=== PATIENT | female | born 1995 | race Hispanic/Latino ===

== ENCOUNTER → 2019-11-01 | Outpatient (CLI) | payer OTHER ==
--- NOTE | 2019-11-01 13:53 | REP ---
PELVIC ULTRASOUND: Real-time sonographic evaluation of the pelvis performed. Uterus measures 10.2 x 4.7 x 6.9 cm. There is an intrauterine gestational sac which contains a yolk sac and a pole. The crown-rump length is 15 mm corresponding to an estimated gestational age of 7 weeks 6 days. No heart motion is detected consistent with intrauterine demise. The right ovary is not visualized. The left ovary measures 2.8 x 1.2 x 1.8 cm. IMPRESSION: Intrauterine gestation 7 weeks 6 days age demonstrates no heart motion consistent with intrauterine demise. Electronically Signed by Eleuterio Go MD 11/01/2019 03:54 P
== END ==
LOC: M RAD 12:16
PROVIDERS: ATTEND Obstetrics & Gynecology
DX: Z34.80 Encounter for supervision of other normal pregnancy, unspecified trimester (principal); Z3A.00 Weeks of gestation of pregnancy not specified

== ENCOUNTER 2021-04-11 05:04 | Inpatient (IN) | payer OTHER ==
[2021-04-11] VITALS (24 sets, daily range): BP systolic 133–178; BP diastolic 67–102
[~2021-04-11] VITALS: Ht 157.5 cm; Wt 94.4 kg
[~2021-04-11 05:04] MED LIST: FERR325T81 PO; MULTTAB20 PO; UNIS25TA3 PO; VITA500C24 PO
[2021-04-11] MEDS ORDERED: ceFAZolin SOD 2 GM in IV 1 EA IV ONE (05:15)
[2021-04-11] MEDS ORDERED: BICITRA 30ML SOLN UDC PO ONE (05:15)
[2021-04-11] MEDS ORDERED: LR 1,000 ML IV SCH (05:15)
[2021-04-11] MEDS ORDERED: LR 1,000 ML IV ONE (05:15)
[2021-04-11 05:40] LABS: HEMATOCRIT 28.5 % (36.0-47.0); HEMOGLOBIN 8.7 g/dl (12.0-15.5); MEAN CORPUSCULAR HEMOGLOBIN 23.3 pg (27.0-33.0); MEAN CORPUSCULAR HGB CONC 30.5 g/dl (32.0-36.5); MEAN CORPUSCULAR VOLUME 76.2 fl (80.0-96.0); PLATELET COUNT, AUTOMATED 197 10^3/uL (150-450); RED BLOOD COUNT 3.74 10^6/uL (4.00-5.40); WHITE BLOOD COUNT 9.9 10^3/uL (4.0-10.0)
[2021-04-11] MEDS ORDERED: NALBUPHINE HCL 10 MG/ML AMP (J2300) IV PRN ×2 (07:54→09:35)
[2021-04-11] MEDS ORDERED: diphenhydrAMINE 50MG/ML VIAL (J1200) IV PRN (07:54)
[2021-04-11] MEDS ORDERED: ONDANSETRON 4MG/2ML VIAL IV PRN ×2 (07:54→09:35)
[2021-04-11] MEDS ORDERED: NALOXONE INJ 0.4MG/1ML VIAL (J2310 PER 1MG) IV PRN ×2 (07:54)
[2021-04-11] MEDS ORDERED: METOCLOPRAMIDE INJ 10MG/2ML VIAL (J2765 PER 1) IV PRN (07:54)
[2021-04-11] MEDS ORDERED: MORPHINE PRES-FREE INJ 10 MG/10 ML VIAL (J2274) As Ordered ONE (07:58)
[2021-04-11] MEDS ORDERED: ONDANSETRON 4MG/2ML VIAL As Ordered ONE (07:59)
[2021-04-11] MEDS ORDERED: OXYTOCIN 30 UNITS IN 0.9% NaCl 500ML IV BAG (J2590) As Ordered ONE ×2 (07:59→09:21)
[2021-04-11] MEDS ORDERED: ePHEDrine SULFATE 25 MG/5 ML(5MG/ML) SYRINGE As Ordered ONE (08:21)
[2021-04-11] MEDS ORDERED: KETOROLAC 60MG 2ML VIAL As Ordered ONE (08:27)
[2021-04-11] MEDS ORDERED: PERCOCET 5MG/325MG TAB PO PRN (09:20)
[2021-04-11] MEDS ORDERED: MEASLES,MUMPS,RUBELLA VACCINE INJ (MMR-II) (90707) SC SCH (09:20)
[2021-04-11] MEDS ORDERED: DOCUSATE SODIUM 100MG CAPSULE PO PRN (09:20)
[2021-04-11] MEDS ORDERED: PROMETHAZINE 25 MG TAB PO PRN (09:20)
[2021-04-11] MEDS ORDERED: RHOGAM 300 MCG (1500 IU) INJ (J2790) IM SCH (09:20)
[2021-04-11] MEDS ORDERED: SIMETHICONE 80MG CHEW TAB PO PRN (09:20)
[2021-04-11] MEDS ORDERED: OXYTOCIN DRIP 30 UNITS in IV 1 EA IV SCH (09:20)
[2021-04-11] MEDS ORDERED: fentaNYL 100 MCG/2 ML INJECTION (J3010) IV PRN (09:35)
[2021-04-11] MEDS ORDERED: oxyCODONE 5MG TAB PO PRN (09:35)
[2021-04-11] MEDS ORDERED: LR 500 ML IV ONE (11:20)
--- NOTE | 2021-04-11 11:28 | RO ---
OPERATIVE NOTE DATE OF OPERATION: 04/11/2021 PREOPERATIVE DIAGNOSES: 1. Prior x2. 2. No desire for TOLAC. 3. Obesity. POSTOPERATIVE DIAGNOSES: 1. Prior x2. 2. No desire for TOLAC. 3. Obesity. PROCEDURE: Repeat low transverse section. SURGEON: Moses Pagan DO [facility] MANAGER: Esther Falcon CNM, whose assistance with exposure, retraction, and visualization was essential to completion of the case. ANESTHESIA: Spinal. IV FLUIDS: 1300 mL LR. URINE OUTPUT: 25 mL via Marcum catheter. EBL: 500 mL. ANTIBIOTICS: 2 gm Ancef before case start. OPERATIVE FINDINGS: Normal appearing uterus, fallopian tubes and ovaries bilaterally. Viable female found and delivered in cephalic presentation. weight 3500 gm or 7 pounds 11 ounces, Apgars 9 and 9. COMPLICATIONS: None. DESCRIPTION OF PROCEDURE: The risks, benefits, indications, and alternatives of the procedure were reviewed with the patient and informed consent was obtained. The patient was taken to the operating room where spinal anesthesia was obtained and found to be adequate. She was then prepped and draped in the usual sterile fashion in the dorsal supine position with a leftward tilt. A surgical time out was then performed and the patient's identity and planned procedure were verified with the operative team. A pfannenstiel skin incision was then made with a scalpel and carried through to the underlying layer of fascia with Bovie electrocautery. The fascia was incised in the midline and the incision was extended laterally with Vieira scissors. The superior aspect of the fascial incision was grasped with Tom clamps, elevated, and the underlying rectus muscles were dissected off bluntly and with Vieira scissors. Attention was then turned to the inferior aspect of this incision which in similar fashion was grasped, tented up with Tom clamps, and the rectus muscles were dissected off both by blunt dissection and with Vieira scissors. The rectus muscles were then in the midline. The peritoneum was identified, tented up, and entered digitally. The peritoneal incision was then extended horizontally and superiorly with good visualization of the bladder. A Mobius self-retaining retractor was then introduced into the abdomen as means for exposure. The vesicouterine peritoneum was then nicked with the scalpel and the bladder flap was created digitally. Next, the lower uterine segment was incised in a transverse fashion with the scalpel. The amniotic sac was artificially ruptured productive of clear fluid. The uterine incision was then extended manually in a superolateral fashion. The infant was found to be in cephalic presentation. The baby was then delivered atraumatically through the hysterotomy site without difficulty. The cord was doubly clamped and cut. The infant was handed off to the awaiting pediatricians. The placenta was then removed manually with gentle traction on the cord. The uterus was then cleared of all clots and debris. The uterine incision was then repaired with #0 Monocryl suture in a running locked fashion. A second layer of #0 Monocryl was then used to imbricate the hysterotomy in a vertical fashion. Irrigation was then performed. Inspection of the hysterotomy revealed excellent hemostasis. The pericolic gutters were then inspected and cleared of all clot and debris. Final inspection of hysterotomy revealed continued excellent hemostasis. The Mobius self-retaining retractor was then removed from the abdomen. The peritoneum was then closed with 3-0 Vicryl suture in a running fashion. The fascia was closed with #0 Vicryl suture in a running fashion. The subcutaneous fat was closed with 3-0 Vicryl suture in a running fashion. The skin was closed with 4-0 Monocryl suture in a subcuticular fashion. The incision was then dressed with Steri-Strips and an Optifoam dressing was applied. At the completion of the case a bimanual exam was performed which revealed good uterine tone and minimal vaginal bleeding. The patient tolerated the procedure well. Sponge, instrument, and needle counts were correct x3. The patient was taken to the recovery room in stable condition. YAMIL
--- NOTE | 2021-04-11 11:37 | IPNPDOC ---
Progress Note Date of Service: April 11, 2021 Day#: 0 Progress Note SUBJECT: The patient is a 26-year-old 4 now Para 2-0-1-2 status post uncomplicated section delivery at 38-1/7 weeks. She has only had a total of 35 ml of urine output since arriving to the OR. 25 ml of urine while in the OR and 10 ml of urine in the PACU. She has received 2700 ml of IV fluids since arriving to the OR. BP has been stable. She denies headache, chest pain, RUQ pain, and visual changes. OBJECTIVE: VITAL SIGNS: Within normal limits, afebrile, except BP mildly elevated Alert and oriented times three. Breath sounds clear to auscultation. Heart rate: Regular rate and rhythm, no murmurs, rubs or gallops. Abdomen: Fundus firm at U-2. Soft, NTTP. Minimal lochia. Bladder scan: 1 ml ASSESSMENT: The patient is a 26-year-old 4 now Para 2-0-1-2 status post uncomplicated section delivery at 38-1/7 weeks. Discussed with patient that likely fluid is third spacing. Discussed with her that will obtain labs and continue to monitor BP. If BP is elevated in severe range, will start magnesium sulfate IV x24 hours and PO antihypertensives. PLAN: Obtain PIH labs IV fluid bolus of 500 ml LR Continue to monitor BP, if severe range >160 systolic and/or >110 diastolic, will start magnesium sulfate and PO antihypertensives Discussed patient status with Dr. Pagan, who agrees and recommended this plan. VS, I&O, 24H, Fishbone Vital Signs/I&O Vital Signs Date Time Temp Pulse Resp B/P (MAP) Pulse Ox O2 Delivery O2 Flow Rate FiO2 04/11/21 11:15 97.9 82 16 142/86 (104) 98 Room Air Laboratory Data 24H LABS Laboratory Tests 2 04/10/21 22:09: Serology Scanned Report Hepatitis B Testing 04/11/21 05:26: Nucleated Red Blood Cells % (auto) 0.0, Syphilis Serology NONREACTIVE CBC/BMP Laboratory Tests 04/11/21 05:26 BHAVIN REYES CNM April 11, 2021 11:37
[2021-04-11 12:36] LABS: ALT/SGPT 13 U/L (12-78); BILIRUBIN,TOTAL 0.2 MG/DL (0.2-1.0); CREATININE FOR GFR 0.33 MG/DL (0.55-1.30); GLOMERULAR FILTRATION RATE > 60.0 (>60); LDH LACTATE DEHYDROGENASE 195 U/L (84-246); URIC ACID 4.3 MG/DL (2.6-6.0)
[2021-04-11] MEDS: KETOROLAC 30 MG/ML 1ML VIAL IV SCH ×2 (13:38→19:56)
[2021-04-11] MEDS ORDERED: MAGNESIUM *L&D* 4GM/100ML BAG (40MG/ML) IV ONE (18:35)
[2021-04-11] MEDS: MAG Sulf (OBGYN) 20GM/500ML 20,000 MG in IV 1 EA IV SCH (19:13)
[2021-04-11] MEDS: LABETALOL 100MG TAB PO SCH (20:23)
[2021-04-11] MEDS: LR 1,000 ML IV SCH (20:43)
--- NOTE | 2021-04-11 21:50 | IPNPDOC ---
Progress Note Date of Service: April 11, 2021 Progress Note Roxana had severely elevated blood pressures this morning before surgery, and then briefly thereafter. Her blood pressure was then normal to mildly elevated this afternoon. CMP was normal. She was noted to be oliguric all day, including only 25ml of UO intraoperatively. She had vomiting even before surgery started, and then vomited multiple times postoperatively. This evening she again developed persistent severely elevated blood pressures so I started IV magnesium for maternal seizure prophylaxis and she was transferred back to L&D. She rules in for CHTN with superimposed pre eclampsia with severe features. At the bedside this evening Roxana reports feeling well. Her nausea has improved. She denies any headaches, RUQ pain, or visual changes. She denies any pain whatsoever. Vitals - BP normal to mildly elevated, HR 70s-80s, afebrile, 98-99% PO2 on RA General - Sitting up in bed, AAOX3, pleasant and conversant, NAD Abdomen - Soft, nondistended. No tenderness to palpation. - Marucm bag draining clear/yellow urine Extremities - 2+ edema UO - Oliguria, though this appears to be improving. Last hour she put out 30ml and hour before that she put out 75ml. Will maintain mag drip for 24 hours. Will serially check CBC, CMP, and mag lev el. PO labetalol BID ordered for BP control. Clear liquid diet. Continuous SCDs. Encourage IS use. Will continue to monitor UO closely. I suspect 3rd spacing of fluid from her Pre E, worsening anemia s/p surgery (starting H/H ~07/21), and multiple episodes of vomiting with subsequent fluid loss explain her oliguria. I discussed all of this with Roxana and her in detail. All questions answered. Ej VS, I&O, 24H, Rhys Vital Signs/I&O Vital Signs Date Time Temp Pulse Resp B/P (MAP) Pulse Ox O2 Delivery O2 Flow Rate FiO2 04/11/21 20:57 71 16 144/83 (103) 04/11/21 20:27 97.9 04/11/21 18:00 99 04/11/21 12:15 Room Air Laboratory Data 24H LABS Laboratory Tests 2 04/10/21 22:09: Serology Scanned Report Hepatitis B Testing 04/11/21 05:26: Nucleated Red Blood Cells % (auto) 0.0, Syphilis Serology NONREACTIVE 04/11/21 11:53: Glomerular Filtration Rate > 60.0, Uric Acid 4.3, Total Bilirubin 0.2, Aspartate Amino Transf (AST/SGOT) 17, Alanine Aminotransferase (ALT/SGPT) 13, Lactate Dehydrogenase 195 CBC/BMP Laboratory Tests 04/11/21 05:26 04/11/21 11:53 KENNEDY HENRIQUEZ DO April 11, 2021 21:50
[2021-04-12] VITALS (23 sets, daily range): BP systolic 118–179; BP diastolic 56–107
[2021-04-12 01:08] LABS: HEMATOCRIT 23.3 % (36.0-47.0); MEAN CORPUSCULAR VOLUME 76.6 fl (80.0-96.0); PLATELET COUNT, AUTOMATED 157 10^3/uL (150-450); RED BLOOD COUNT 3.04 10^6/uL (4.00-5.40); WHITE BLOOD COUNT 7.9 10^3/uL (4.0-10.0)
[2021-04-12 01:36] LABS: ALBUMIN 2.1 GM/DL (3.2-5.2); ALT/SGPT 13 U/L (12-78); BILIRUBIN,TOTAL 0.3 MG/DL (0.2-1.0); BLOOD UREA NITROGEN 5 MG/DL (7-18); CALCIUM LEVEL 7.7 MG/DL (8.5-10.1); CARBON DIOXIDE LEVEL 27 MEQ/L (21-32); CHLORIDE LEVEL 105 MEQ/L (98-107); CREATININE FOR GFR 0.34 MG/DL (0.55-1.30); GLOMERULAR FILTRATION RATE > 60.0 (>60); GLUCOSE, FASTING 121 MG/DL (70-100); MAGNESIUM LEVEL 2.9 MG/DL (1.8-2.4); POTASSIUM SERUM 3.5 MEQ/L (3.5-5.1); SODIUM LEVEL 135 MEQ/L (136-145); TOTAL PROTEIN 5.2 GM/DL (6.4-8.2)
[2021-04-12] MEDS: KETOROLAC 30 MG/ML 1ML VIAL IV SCH (02:23)
[2021-04-12 06:53] LABS: HEMATOCRIT 23.3 % (36.0-47.0); MEAN CORPUSCULAR HEMOGLOBIN 23.3 pg (27.0-33.0); MEAN CORPUSCULAR VOLUME 77.7 fl (80.0-96.0); PLATELET COUNT, AUTOMATED 165 10^3/uL (150-450); WHITE BLOOD COUNT 6.5 10^3/uL (4.0-10.0)
--- NOTE | 2021-04-12 07:10 | IPNPDOC ---
Progress Note Date of Service: April 12, 2021 Progress Note Urine output has increased significantly, >200ml/hr. BP remains normal to mildly elevated. H/H is stable. Plan to continue magnesium drip for 24 hours (~1900 today). Will then remove gusman catheter, ambulate, and monitor for symptoms of anemia, and transfuse if indicated. Ej VS, I&O, 24H, Michelbonbetty Vital Signs/I&O Vital Signs Date Time Temp Pulse Resp B/P (MAP) Pulse Ox O2 Delivery O2 Flow Rate FiO2 04/12/21 06:33 81 16 141/71 (94) 04/12/21 02:27 97.8 04/11/21 18:00 99 04/11/21 12:15 Room Air I&O- Last 24 Hours up to 6 AM 04/12/21 06:00 Intake Total 5767.8 ml Output Total 4565 ml Balance 1202.8 ml Laboratory Data 24H LABS Laboratory Tests 2 04/11/21 11:53: Glomerular Filtration Rate > 60.0, Uric Acid 4.3, Total Bilirubin 0.2, Aspartate Amino Transf (AST/SGOT) 17, Alanine Aminotransferase (ALT/SGPT) 13, Lactate Dehydrogenase 195 04/12/21 01:01: Glomerular Filtration Rate > 60.0, Total Bilirubin 0.3, Aspartate Amino Transf (AST/SGOT) 29, Alanine Aminotransferase (ALT/SGPT) 13, Nucleated Red Blood Cells % (auto) 0.0, Anion Gap 3L, Calcium Level 7.7L, Magnesium Level 2.9H, Alkaline Phosphatase 123H, Total Protein 5.2L, Albumin 2.1L, Albumin/Globulin Ratio 0.7L 04/12/21 06:44: Nucleated Red Blood Cells % (auto) 0.0 CBC/BMP Laboratory Tests 04/11/21 11:53 04/12/21 01:01 04/12/21 06:44 KENNEDY HENRIQUEZ DO April 12, 2021 07:10
[2021-04-12 07:21] LABS: ALBUMIN 1.9 GM/DL (3.2-5.2); ALT/SGPT 13 U/L (12-78); BILIRUBIN,TOTAL 0.2 MG/DL (0.2-1.0); BLOOD UREA NITROGEN 4 MG/DL (7-18); CALCIUM LEVEL 7.9 MG/DL (8.5-10.1); CARBON DIOXIDE LEVEL 28 MEQ/L (21-32); CHLORIDE LEVEL 106 MEQ/L (98-107); CREATININE FOR GFR 0.34 MG/DL (0.55-1.30); GLOMERULAR FILTRATION RATE > 60.0 (>60); GLUCOSE, FASTING 89 MG/DL (70-100); MAGNESIUM LEVEL 3.2 MG/DL (1.8-2.4); SODIUM LEVEL 140 MEQ/L (136-145); TOTAL PROTEIN 4.9 GM/DL (6.4-8.2)
[2021-04-12] MEDS: LABETALOL 100MG TAB PO SCH ×2 (09:18→20:52)
[2021-04-12] MEDS: IBUPROFEN 800 MG TAB PO SCH ×2 (09:18→17:41)
[2021-04-12] MEDS: PRENATAL VITAMINS CHEWABLE TABLET PO SCH (09:18)
[2021-04-12] MEDS: PERCOCET 5MG/325MG TAB PO PRN ×2 (13:05→17:43)
[2021-04-12] MEDS: MAG Sulf (OBGYN) 20GM/500ML 20,000 MG in IV 1 EA IV SCH (15:08)
--- NOTE | 2021-04-12 18:17 | IPNPDOC ---
Text Note Date of Service The patient was seen on 04/12/21. NOTE 04/12/2021 1800 hours review progress to date. . 26 yo AT 38.1 WEEKS HAD REPEAT CS AND POST C/S HAD SEVERE RANGE BLOOD PRESSURE STARTED ON LABETALOL AND MGSO4 . NOW DIURESIS AND STABLE BP ON MGSO4 X 24 HOURS. Plan is to d/c mgso4, continue labetalol and d/c Marcum and send to floor , SAFE TO PROCEED VS,Rhys, I+O VS, Rhys, I+O Laboratory Tests 04/12/21 01:01 04/12/21 06:44 Vital Signs Date Time Temp Pulse Resp B/P (MAP) Pulse Ox O2 Delivery O2 Flow Rate FiO2 04/12/21 17:43 18 04/12/21 06:33 81 141/71 (94) 04/12/21 02:27 97.8 04/11/21 18:00 99 04/11/21 12:15 Room Air I&O- Last 24 Hours up to 6 AM 04/12/21 06:00 Intake Total 5767.8 ml Output Total 4565 ml Balance 1202.8 ml Toi Singh MD April 12, 2021 18:12
[2021-04-12] MEDS: LR 1,000 ML IV SCH (20:05)
[2021-04-12 20:06] LABS: HEMATOCRIT 25.8 % (36.0-47.0); HEMOGLOBIN 7.8 g/dl (12.0-15.5); MEAN CORPUSCULAR HEMOGLOBIN 23.4 pg (27.0-33.0); MEAN CORPUSCULAR HGB CONC 30.2 g/dl (32.0-36.5); MEAN CORPUSCULAR VOLUME 77.2 fl (80.0-96.0); PLATELET COUNT, AUTOMATED 222 10^3/uL (150-450); RED BLOOD COUNT 3.34 10^6/uL (4.00-5.40); WHITE BLOOD COUNT 8.4 10^3/uL (4.0-10.0)
[2021-04-13] VITALS (7 sets, daily range): BP systolic 131–160; BP diastolic 76–92
[2021-04-13] MEDS: IBUPROFEN 800 MG TAB PO SCH ×3 (01:54→17:48)
[2021-04-13] MEDS: PERCOCET 5MG/325MG TAB PO PRN ×3 (01:57→21:28)
[2021-04-13] MEDS: LR 1,000 ML IV SCH ×3 (02:35→22:35)
[2021-04-13] MEDS: LABETALOL 100MG TAB PO SCH ×2 (09:08→21:18)
[2021-04-13] MEDS: PRENATAL VITAMINS CHEWABLE TABLET PO SCH (09:09)
[2021-04-13] MEDS: MAG Sulf (OBGYN) 20GM/500ML 20,000 MG in IV 1 EA IV SCH (10:35)
--- NOTE | 2021-04-13 10:51 | IPNPDOC ---
Progress Note Date of Service: April 13, 2021 Day#: 2 Progress Note SUBJECT: Roxana is a 26-year-old post RLTCS with superimposed PRE E doing well day # 2. She has been ambulating, voiding spontaneously without issue and tolerating regular diet. Breast feeding without issue. Reports lochia is normal. Patient is ambulating well. Reports some tenderness at incision site feels better with abdominal wrap. OBJECTIVE: VITAL SIGNS: mild rang BP, afebrile. Alert and oriented times three. Denies headaches or vision changes. Breath sounds clear to auscultation. Heart rate: Regular rate and rhythm, no murmurs, rubs or gallops. Abdomen: Fundus firm at U-2. Soft, NTTP. Small lochia. ASSESSMENT: Stable day 2 post . B/P normal- mild range, afebrile. PLAN: 1. continue to monitor B/P on labetalol 2. provide routine care 3. anticipate discharge on 14Apr2021 VS, I&O, 24H, Fishbone Vital Signs/I&O Vital Signs Date Time Temp Pulse Resp B/P (MAP) Pulse Ox O2 Delivery O2 Flow Rate FiO2 04/13/21 10:00 98.9 93 15 131/77 (95) 97 Room Air I&O- Last 24 Hours up to 6 AM 04/13/21 06:00 Intake Total 1532.5 ml Output Total 4500 ml Balance -2967.5 ml Laboratory Data 24H LABS Laboratory Tests 2 04/12/21 19:51: Nucleated Red Blood Cells % (auto) 0.2H CBC/BMP Laboratory Tests 04/12/21 19:51 CHARLES GUZMAN CNM April 13, 2021 10:51
[2021-04-14 02:00] VITALS: BP 130/80
[2021-04-14] MEDS: IBUPROFEN 800 MG TAB PO SCH (02:11)
[2021-04-14] MEDS: PERCOCET 5MG/325MG TAB PO PRN ×2 (05:25→09:04)
[2021-04-14] MEDS ORDERED: IBUP80TA PO (08:53)
[2021-04-14] MEDS ORDERED: PERCOCET PO ×2 (08:53)
--- NOTE | 2021-04-14 09:00 | DS.PDOC ---
Discharge Summary General Date of Admission April 11, 2021 at 05:04 Date of Discharge April 14, 2021 Discharge Summary HOSPITAL COURSE: Ms. Yoder is a 26 yo G5 now P3 who underwent an uncomplicated, scheduled RLTCS on 11Apr2021 for CHTN and history of section X2. She developed superimposed pre eclampsia with severe features and received 24 hours of IV magnesium. She was also star araceli on PO labetalol for BP control. Her BP ultimately stabilized. She had pre existing anemia as well as anemia . Her H/H remained stable and she had no symptoms of anemia with ambulation. On her day of discharge she met all appropriate discharge criteria. She was ambulating with dizziness, SOB, or fatigue, voiding on her own, tolerating a regular diet, passing gas, and had minimal lochia. She also denied any headaches, RUQ pain, or visual changes. DISCHARGE MEDICATIONS: Please see below. ALLERGIES: Please see below. PHYSICAL EXAMINATION ON DISCHARGE: VITAL SIGNS: Please see below. GENERAL: AAOX3, NAD ABDOMINAL EXAMINATION: Fundus firm at U-2. No fundal tenderness. Optifoam dressing in place over incision. Well appearing. No tenderness to palpation at incision. EXTREMITIES: Mild edema, much improved. PSYCHIATRIC EXAMINATION: Affect appropriate LABORATORY DATA: Please see below. ACTIVITY: Pelvic rest for 6 weeks. No heavy lifting for 6 weeks DIET: Regular DISCHARGE PLAN: Discharge home DISPOSITION: Discharge home on 14Apr2021 DISCHARGE INSTRUCTIONS: 1. Nothing in the vagina for 6 weeks 2. No heavy lifting for 6 weeks ITEMS TO FOLLOWUP ON ON OUTPATIENT: 1. Walk in BP check on Friday at the [place] 2. supply and distribution manager medications at [facility] and at [facility] 3. Call to schedule a visit for 6 weeks post delivery DISCHARGE CONDITION: Stable. TIME SPENT ON DISCHARGE: Greater than 20 minutes. Kennedy Pagan DO Vital Signs/I&Os Vital Signs Date Time Temp Pulse Resp B/P (MAP) Pulse Ox O2 Delivery O2 Flow Rate FiO2 04/14/21 06:18 16 Room Air 04/14/21 02:00 97.8 96 130/80 (97) 96 Discharge Medications Scheduled Ascorbic Acid (Vitamin C) 500 Mg Capsule, 500 MG PO DAILY, (Reported) Doxylamine Succinate (Unisom Sleep Aid) 25 Mg Tablet, 25 MG PO QPM, (Reported) Ferrous Sulfate (Iron) 325 Mg Tablet, 65 MG PO DAILY, (Reported) Ibuprofen (Ibuprofen) 800 Mg Tablet, 800 MG PO Q8H No122/Iron/Folic Acid ( Multi Tablet) 1 Each Tablet, 1 TAB PO DAILY, (Reported) Scheduled PRN Oxycodone/Acetaminophen (Oxycodone-Acetaminophen 5-325) 1 Each Tablet, 1 TAB PO Q4H PRN for MILD/MODERATE PAIN (PS 1-7) Oxycodone/Acetaminophen (Oxycodone-Acetaminophen 5-325) 1 Each Tablet, 2 TAB PO Q6H PRN for SEVERE PAIN (PS 8-10) Allergies Coded Allergies: No Known Allergies (Unverified , 03/27/21) KENNEDY PAGAN DO April 14, 2021 09:00
[2021-04-14] MEDS: PRENATAL VITAMINS CHEWABLE TABLET PO SCH (09:05)
[2021-04-14 09:09] VITALS: BP 158/88
[2021-04-14] MEDS: LABETALOL 100MG TAB PO SCH (09:09)
[2021-04-14 10:36] VITALS: BP 162/86
== END 2021-04-14 11:00 | disposition home or self-care (01) | DRG 772 ==
LOC: M LDI 05:04 → EDSTATUS 07:30 → M OBS 10:35 → M LDI 18:52 → M OBS 04-12 18:45
PROVIDERS: ADMIT Obstetrics & Gynecology; ATTEND Obstetrics & Gynecology
PROC: 10D00Z1 Extraction of Products of Conception, Low, Open Approach (ICD-10-PCS; principal; 2021-04-11 07:30)
DX: O34.211 Maternal care for low transverse scar from previous cesarean delivery (principal); O10.92 Unspecified pre-existing hypertension complicating childbirth; Z37.0 Single live birth; Z3A.39 39 weeks gestation of pregnancy; E66.9 Obesity, unspecified; O99.214 Obesity complicating childbirth; O14.15 Severe pre-eclampsia, complicating the puerperium

== ENCOUNTER 2021-04-16 13:07 | Inpatient (IN) | payer OTHER ==
[2021-04-16] VITALS (22 sets, daily range): BP systolic 139–186; BP diastolic 84–116
[~2021-04-16] VITALS: Ht 157.5 cm; Wt 85.0 kg
[~2021-04-16 13:07] MED LIST changes: +IBUP80TA PO; +PERCOCET PO
[2021-04-16] MEDS ORDERED: LABETALOL 100MG/20ML VIAL IV STA ×3 (13:27→15:07)
[2021-04-16] MEDS ORDERED: LABE100T5 PO (13:30)
--- NOTE | 2021-04-16 13:44 | IPNPDOC ---
Obstetrical Progress Note Date of Service April 16, 2021 Subjective 26 yo s/p RLTCS on 11 APR 2021 presents for elevated BP . During her admission for her section, she was diagnosed with chronic HTN with superimposed pre-eclampsia and started on labetalol 100 mg BID and was given magnesium sulfate IV x24 hours. She presents from the clinic today with severe range BP in the clinic during her BP check. She denies headache, chest pain, RUQ pain, and visual changes. She last took her labetalol this morning at 0900. Objective BP: 178/107 BP 185/116 Assessment and Plan Age: 26 : 4 Term: 2 Pre-term: 0 Abortions: 1 Livin Additional Comments Will continue to monitor BP and administer IV labetalol Discussed with her increasing her oral labetalol to 200 mg BID starting tonight Will await PIH labs Consider for outpatient BP check tomorrow in the clinic Discussed plan and patient status with Dr. Alonzo, who agrees with the plan Spent 20 minutes of face to face time with the patient for assessment and to discuss plan of care BHAVIN REYES CNM April 16, 2021 13:28
[2021-04-16 13:46] LABS: HEMATOCRIT 27.5 % (36.0-47.0); HEMOGLOBIN 8.1 g/dl (12.0-15.5); MEAN CORPUSCULAR HEMOGLOBIN 23.1 pg (27.0-33.0); MEAN CORPUSCULAR HGB CONC 29.5 g/dl (32.0-36.5); MEAN CORPUSCULAR VOLUME 78.6 fl (80.0-96.0); PLATELET COUNT, AUTOMATED 260 10^3/uL (150-450); WHITE BLOOD COUNT 6.4 10^3/uL (4.0-10.0)
[2021-04-16 14:11] LABS: TOTAL PROTEIN,RANDOM URINE 35.1 MG/DL (0.0-12.0)
[2021-04-16] MEDS ORDERED: hydrALAZINE 20MG/ML 1ML VIAL (J0360 PER 20MG) IV STA (14:12)
[2021-04-16 14:13] LABS: ALT/SGPT 29 U/L (12-78); BILIRUBIN,TOTAL 0.4 MG/DL (0.2-1.0); CREATININE FOR GFR 0.47 MG/DL (0.55-1.30); GLOMERULAR FILTRATION RATE > 60.0 (>60); LDH LACTATE DEHYDROGENASE 266 U/L (84-246); URIC ACID 5.2 MG/DL (2.6-6.0)
[2021-04-16] MEDS ORDERED: hydrALAZINE 20MG/ML 1ML VIAL (J0360 PER 20MG) As Ordered ONE (14:15)
[2021-04-16] MEDS ORDERED: CALCIUM GLUCONATE 1,000 MG in D5W MINI-BAG PLUS 100 ML IV PRN (15:50)
[2021-04-16] MEDS ORDERED: PERCOCET 5MG/325MG TAB PO PRN (15:50)
[2021-04-16] MEDS ORDERED: MAG Sulf (L&D) 4 GM/100 ML 4 GM in IV 1 EA IV ONE (15:50)
[2021-04-16] MEDS: LR 1,000 ML IV SCH (16:36)
--- NOTE | 2021-04-16 16:43 | HPEPDOC ---
General Date of Admission Date of Service: April 16, 2021 Chief Complaint The patient is a 26-year-old female admitted with a reason for visit of 5 Pp Elevated Bp. History of Present Illness 26 yo s/p RLTCS on 11 APR 2021 presents for elevated BP found in routine BP check in clinic. During her admission for her section, she was diagnosed with chronic HTN with superimposed pre-eclampsia with severe features and started on labetalol 100 mg BID and was given magnesium sulfate IV x24 hours . She denies headache, chest pain, RUQ pain, and visual changes. She last took her labetalol this morning at 0900. She denied n/v/d, cp, sob, ritter, visual changes, RUQ pain, f/c, heavy vb, dc, urinary sx. Home Medications Scheduled Ibuprofen (Ibuprofen) 800 Mg Tablet, 800 MG PO Q8H Labetalol HCl (Labetalol HCl) 100 Mg Tablet, 100 MG PO BID, (Reported) Allergies Coded Allergies: No Known Allergies (Unverified , 03/27/21) Past Medical History Medical History PROBLEMS LIST - CHTN on meds, labetlol 100mg BID on admission - superimposed pre-eclampsia with SF s/p 24h Mg in the immediate period - post-operative patient, s/p RCD on - anemia of HISTORY MHX: CHTN on meds SHX: CDx3 OBHX: CD x3, SAB x1 medical management, hx PPH and ITP, CHTN on meds GYNHX: denied sti, hsv, hpv ALL: denied MEDS: labetlol 100mg BID, ibuprofen, percocet, colace, Fe, doubidicane, lanolin SOC: denied a/t/d FHX: non-contributory Social History Recent Travel/Sick Contacts: Denies: Recent travel, Recent sick contacts A-FIB/CHADSVASC A-FIB History Current/History of A-Fib/PAF?: No Physical Examination General Exam: Positive: Alert, No Acute Distress Eye Exam: Positive: Conjunctiva & lids normal ENT Exam: Positive: Atraumatic, Mucous membr. moist/pink Neck Exam: Positive: Supple Chest Exam: Positive: Clear to auscultation Heart Exam: Positive: Rate Normal, Normal S1, Normal S2 Abdomen Exam: Positive: Normal bowel sounds, Soft Extremity Exam: Positive: Edema, Normal pulses, Swelling (+2 BL pedal edema), Other (2/4 BL DTRs no clonus) Skin Exam: Positive: Nl turgor and temperature Neuro Exam: Positive: Normal Gait, Reflexes 2+ Psych Exam: Positive: Mental status NL Vital Signs Vital Signs Date Time Temp Pulse Resp B/P (MAP) Pulse Ox O2 Delivery O2 Flow Rate FiO2 04/16/21 15:13 89 160/99 04/16/21 15:02 18 04/16/21 13:24 99.3 Laboratory Data Labs 24H Laboratory Tests 2 04/16/21 13:30: Nucleated Red Blood Cells % (auto) 0.0, Glomerular Filtration Rate > 60.0, Uric Acid 5.2, Total Bilirubin 0.4, Aspartate Amino Transf (AST/SGOT) 30, Alanine Aminotransferase (ALT/SGPT) 29, Lactate Dehydrogenase 266H 04/16/21 13:36: Urine Random Creatinine 200.0, Urine Random Total Protein 35.1H CBC/BMP Laboratory Tests 04/16/21 13:30 Assessment/Plan ASSESSMENT 26 yo s/p RLTCS on 11 APR 2021 presents for elevated BP found in routine BP check in clinic in the setting of recent diagnosis of superimposed pre-eclampsia with severe features on CHTN diagnosed in the immediate period, receiving 24h Mg at that time, on labetalol 100mg BID on admission. On arrival she had persistent severe range BPs requring 20mg labetalol IV -> 10mg hydralazine IV -> 40mg labetalol IV -> 80mg labetalol IV. Magnesium sulfate was started. She has no symptoms of pre-eclampsia. She now has mild range BPs and otherwise normal VS. Her physical exam is normal with exception of +2 pedal edema. She has anemia H/H 8.1/27.5 but this is stable from pre-op as she had anemia during . She denied symptoms of anemia. Her platelets and creatinine are normal. Her LFTs have trended upward since delivery, but remain within normal range. PLAN - admit to L+D for BP control - IV antihypertensives as indicated for severe BPs, increasing labetlol to 200mg BID - magnesium for seizure prevention for 24h and seizure precautions - gusman catheter placed to monitor urine output - VS/I/O/Mg checks per Mg protocol - clear liquid diet - SCDs for DVT prophylaxis - repeat tox labs in the AM to trend, will DC trend if normal [place] Plan / VTE VTE Prophylaxis Ordered?: Yes (SCDs) SHAYY TORRES DO April 16, 2021 16:43
[2021-04-16] MEDS: MAG Sulf (OBGYN) 20GM/500ML 20,000 MG in IV 1 EA IV SCH (17:11)
[2021-04-16] MEDS ORDERED: LIDOCAINE 2% 5ML JELLY UROJET TOP ONE (17:30)
[2021-04-16] MEDS: DOCUSATE SODIUM 100MG CAPSULE PO SCH (21:00)
[2021-04-16] MEDS: IBUPROFEN 800 MG TAB PO PRN (21:03)
[2021-04-16] MEDS: LABETALOL 200 MG TAB PO SCH (21:04)
[2021-04-16] MEDS: FERROUS SULFATE 325MG TAB PO SCH (21:24)
[2021-04-17] VITALS (31 sets, daily range): BP systolic 119–162; BP diastolic 65–97
[2021-04-17] MEDS: LR 1,000 ML IV SCH (02:10)
[2021-04-17] MEDS: MAG Sulf (OBGYN) 20GM/500ML 20,000 MG in IV 1 EA IV SCH (02:10)
[2021-04-17 07:10] LABS: HEMATOCRIT 26.6 % (36.0-47.0); MEAN CORPUSCULAR HEMOGLOBIN 23.5 pg (27.0-33.0); MEAN CORPUSCULAR HGB CONC 30.1 g/dl (32.0-36.5); MEAN CORPUSCULAR VOLUME 78.2 fl (80.0-96.0); PLATELET COUNT, AUTOMATED 260 10^3/uL (150-450); WHITE BLOOD COUNT 5.4 10^3/uL (4.0-10.0)
--- NOTE | 2021-04-17 07:12 | IPNPDOC ---
Text Note Date of Service The patient was seen on 04/17/21. NOTE History of Present Illness This morning Ms. Yoder has no complaints. She continues to denied n/v/d, cp, sob, ritter, visual changes, abd pain, f/c, heavy vb, vaginal dc, urinary sx. She is tolerating her clear liquid diet, she is on bedrest/seizure precautions, she has a gusman in place. She is having bowel movements without issues. PROBLEMS LIST - CHTN on meds, labetlol 100mg BID on admission - superimposed pre-eclampsia with SF s/p 24h Mg in the immediate period - post-operative patient, s/p RCD on - anemia of HISTORY MHX: CHTN on meds SHX: CDx3 OBHX: CD x3, SAB x1 medical management, hx PPH and ITP, CHTN on meds GYNHX: denied sti, hsv, hpv ALL: denied MEDS: labetlol 100mg BID, ibuprofen, percocet, colace, Fe, doubidicane, lanolin SOC: denied a/t/d FHX: non-contributory Recent Travel/Sick Contacts: Denies EXAM General Exam: Positive: Alert, No Acute Distress Eye Exam: Positive: Conjunctiva & lids normal ENT Exam: Positive: Atraumatic, Mucous membr. moist/pink Neck Exam: Positive: Supple Chest Exam: Positive: Clear to auscultation Heart Exam: Positive: Rate Normal, Normal S1, Normal S2 Abdomen Exam: Positive: Normal bowel sounds, Soft Extremity Exam: Positive: Edema, Normal pulses, Swelling (+2 BL pedal edema), Other (2/4 BL DTRs no clonus) Skin Exam: Positive: Nl turgor and temperature Neuro Exam: Positive: Normal Gait, Reflexes 2+ Psych Exam: Positive: Mental status NL ASSESSMENT Ms. Yoder is a 26 yo s/p RLTCS on 11 APR 2021 presents for elevated BP found in routine BP check in clinic in the setting of recent diagnosis of superimposed pre-eclampsia with severe features on CHTN diagnosed in the immediate period, receiving 24h Mg at that time, on labetalol 100mg BID on admission. On arrival she had persistent severe range BPs requiring 20mg labetalol IV -> 10mg hydralazine IV -> 40mg labetalol IV -> 80mg labetalol IV. Magnesium sulfate was started yesterday at 1600 and her labetalol was increased to 200mg BID. She continues to have no symptoms of pre-eclampsia. She now has mild range BPs and otherwise normal VS. Excellent UOP. Her physical exam is normal with exception of +2 pedal edema. She has anemia H/H 8.1/27.5 but this is stable from pre-op as she had anemia during . She denied symptoms of anemia. Her platelets and creatinine are normal. Her LFTs have trended upward since delivery, but remain within normal range. Her pre-elcampsia labs from this morning have not yet returned. PLAN - IV antihypertensives as indicated for severe BPs, continue labetlol to 200mg BID - magnesium for seizure prevention for 24h and seizure precautions, to be discontinued at 1500 today - gusman catheter placed to monitor urine output - VS/I/O/Mg checks per Mg protocol - will progress to regular diet given improved BP control - SCDs for DVT prophylaxis - follow up on AM labs Rhys Hernandes, I+O VS, Rhys, I+O Laboratory Tests 04/16/21 13:30 Vital Signs Date Time Temp Pulse Resp B/P (MAP) Pulse Ox O2 Delivery O2 Flow Rate FiO2 04/17/21 06:01 78 16 125/78 (94) 04/17/21 03:01 97.5 I&O- Last 24 Hours up to 6 AM 04/17/21 06:00 Intake Total 4415.5 ml Output Total 3675 ml Balance 740.5 ml SHAYY TORRES DO April 17, 2021 07:11
[2021-04-17 07:38] LABS: ALT/SGPT 25 U/L (12-78); BILIRUBIN,TOTAL 0.2 MG/DL (0.2-1.0); CREATININE FOR GFR 0.38 MG/DL (0.55-1.30); GLOMERULAR FILTRATION RATE > 60.0 (>60); LDH LACTATE DEHYDROGENASE 259 U/L (84-246); URIC ACID 5.4 MG/DL (2.6-6.0)
[2021-04-17] MEDS: LABETALOL 200 MG TAB PO SCH ×2 (08:41→21:14)
[2021-04-17] MEDS: FERROUS SULFATE 325MG TAB PO SCH ×2 (08:41→21:12)
[2021-04-17] MEDS: DOCUSATE SODIUM 100MG CAPSULE PO SCH ×2 (08:41→21:00)
[2021-04-17] MEDS: NIFEdipine 30 MG XL TAB PO SCH (13:29)
[2021-04-17] MEDS ORDERED: LABETALOL 100MG/20ML VIAL IV STA (16:26)
[2021-04-17] MEDS: IBUPROFEN 800 MG TAB PO PRN (18:08)
[2021-04-17] MEDS ORDERED: LABETALOL 100MG TAB PO SCH (21:00)
[2021-04-18] VITALS (9 sets, daily range): BP systolic 117–160; BP diastolic 63–84
--- NOTE | 2021-04-18 04:35 | IPNPDOC ---
Text Note Date of Service Item Value Date Time Creatinine 0.38 MG/DL L 04/17/21 0651 Glomerular Filtration Rate > 60.0 04/17/2151 Uric Acid 5.4 MG/DL 04/17/2151 Total Bilirubin 0.2 MG/DL 04/17/21 0651 Aspartate Amino Transf (AST/SGOT) 25 U/L 04/17/21 0651 Alanine Aminotransferase (ALT/SGPT) 25 U/L 04/17/21 0651 Lactate Dehydrogenase 259 U/L H 04/17/21 0651 Vital Signs Label Value Date Time Respiratory Rate 18 bpm 04/12/21 1743 Patient Temperature 98.2 degrees F 04/12/21 1733 Temperature Source Temporal 04/12/21 1733 Pulse 100 04/12/21 1633 Blood Pressure Assessment 148/85 (106) 04/12/21 1633 Source Automatic Cuff (NIBP) Blood Pressure Assessment 137/76 (96) 04/12/21 1733 Source Automatic Cuff (NIBP) Pulse 93 04/12/21 1733 Pulse 95 04/12/21 1453 Blood Pressure Assessment 142/90 (107) 04/12/21 1453 Source Automatic Cuff (NIBP) Respiratory Rate 18 bpm 04/12/21 1340 Pulse 91 04/12/21 1333 Blood Pressure Assessment 136/73 (94) 04/12/21 1333 Source Automatic Cuff (NIBP) Item Value Date Time White Blood Count 5.4 10^3/uL 04/17/21 0651 Red Blood Count 3.40 10^6/uL L 04/17/21 0651 Hemoglobin 8.0 g/dl L 04/17/21 0651 Hematocrit 26.6 % L 04/17/21 0651 Mean Corpuscular Volume 78.2 fl L 04/17/2151 Mean Corpuscular Hemoglobin 23.5 pg L 04/17/2151 Mean Corpuscular Hemoglobin Concent 30.1 g/dl L 04/17/21 0651 Red Cell Distribution Width 17.8 % H 04/17/21 0651 Platelet Count 260 10^3/uL 04/17/21 0651 Nucleated Red Blood Cells % (auto) 0.4 % H 04/17/21 0651 The patient was seen on 04/18/21. NOTE Item Value Date Time Urine Random Creatinine 200.0 MG/DL 04/16/21 1336 Urine Random Total Protein 35.1 MG/DL H 04/16/21 1336 0400 HOURS . REVIEW PLAN OF CARE 26 YO A1 HAD REPEAT CS WITH DIAGNOSIS OF PP PRE E WITH INITIAL HISTORY CHTN, SEEN IN CLINIC HAD SEVERE RANGE BLOOD PRESSURE ADMITTED FOR PRE -E PP . HAD BEEN GIVEN ALL BP MEDS IN PROTOCOL. NOW ON 100 MG LABETALOL TID , AND NIFEDIPINE 30 MG OD . STABLE BLOOD PRESSURE DIURESING REFLEXES NORMAL . NO SYMPTOMS OF PRE E . PLAN IS TRANSFER TO WITH ONGOING ORDERS . VS,Fishbone, I+O VS, Fishbone, I+O Laboratory Tests 04/17/21 06:51 Vital Signs Date Time Temp Pulse Resp B/P (MAP) Pulse Ox O2 Delivery O2 Flow Rate FiO2 04/18/21 04:00 85 16 140/69 (92) 04/18/21 00:55 98.3 04/17/21 16:05 Room Air I&O- Last 24 Hours up to 6 AM 04/18/21 05:59 Intake Total 4587.3 ml Output Total 5125 ml Balance -537.7 ml Toi Singh MD April 18, 2021 04:31
[2021-04-18 07:13] LABS: HEMATOCRIT 26.5 % (36.0-47.0); HEMOGLOBIN 7.8 g/dl (12.0-15.5); MEAN CORPUSCULAR HEMOGLOBIN 23.2 pg (27.0-33.0); MEAN CORPUSCULAR HGB CONC 29.4 g/dl (32.0-36.5); MEAN CORPUSCULAR VOLUME 78.9 fl (80.0-96.0); PLATELET COUNT, AUTOMATED 258 10^3/uL (150-450); RED BLOOD COUNT 3.36 10^6/uL (4.00-5.40); WHITE BLOOD COUNT 7.5 10^3/uL (4.0-10.0)
[2021-04-18] MEDS: IBUPROFEN 800 MG TAB PO PRN (08:24)
[2021-04-18] MEDS: LABETALOL 200 MG TAB PO SCH ×3 (08:25→21:18)
[2021-04-18] MEDS: FERROUS SULFATE 325MG TAB PO SCH ×2 (08:25→21:13)
[2021-04-18] MEDS: DOCUSATE SODIUM 100MG CAPSULE PO SCH ×2 (09:00→21:00)
[2021-04-18] MEDS: PRENATAL VITAMINS CHEWABLE TABLET PO SCH (10:59)
[2021-04-18] MEDS ORDERED: SLF 3 ML SYR IV PRN (11:05)
[2021-04-18] MEDS: NIFEdipine 30 MG XL TAB PO SCH (13:11)
[2021-04-18] MEDS: SLF 3 ML SYR IV SCH ×2 (13:11→22:00)
[2021-04-19 02:00] VITALS: BP 134/79
[2021-04-19] MEDS: SLF 3 ML SYR IV SCH (06:00)
[2021-04-19 06:07] VITALS: BP 137/84
--- NOTE | 2021-04-19 07:16 | IPNPDOC ---
Text Note Date of Service The patient was seen on 04/19/21. NOTE History of Present Illness This morning Ms. Yoder has no complaints. She continues to denied n/v/d, cp, sob, ritter, visual changes, abd pain, f/c, heavy vb, vaginal dc, urinary sx. She is tolerating a regular diet, ambulating, and urinating without issues. She is having bowel movements without issues. PROBLEMS LIST - CHTN on meds, labetlol 100mg BID on admission - superimposed pre-eclampsia with SF s/p 24h Mg in the immediate period - post-operative patient, s/p RCD on - anemia of HISTORY MHX: CHTN on meds SHX: CDx3 OBHX: CD x3, SAB x1 medical management, hx PPH and ITP, CHTN on meds GYNHX: denied sti, hsv, hpv ALL: denied MEDS: labetlol 100mg BID, ibuprofen, percocet, colace, Fe, doubidicane, lanolin SOC: denied a/t/d FHX: non-contributory Recent Travel/Sick Contacts: Denies EXAM General Exam: Positive: Alert, No Acute Distress Eye Exam: Positive: Conjunctiva & lids normal ENT Exam: Positive: Atraumatic, Mucous membr. moist/pink Neck Exam: Positive: Supple Chest Exam: Positive: No increased WOB Heart Exam: Positive: Non-tachycardic Abdomen Exam: Positive: Normal bowel sounds, Soft Extremity Exam: Positive: Edema, Normal pulses, Swelling (+1 BL pedal edema), Other (2/4 BL DTRs no clonus) Skin Exam: Positive: Nl turgor and temperature Neuro Exam: Positive: Normal Gait, Reflexes 2+ Psych Exam: Positive: Mental status NL ASSESSMENT Ms. Yoder is a 26 yo s/p RLTCS on 11 APR 2021 presents for elevated BP found in routine BP check in clinic in the setting of recent diagnosis of superimposed pre-eclampsia with severe features on CHTN diagnosed in the immediate period, receiving 24h Mg at that time, on labetalol 100mg BID on admission. On arrival she had persistent severe range BPs requiring 20mg labetalol IV -> 10mg hydralazine IV -> 40mg labetalol IV -> 80mg labetalol IV. Magnesium sulfate was started yesterday at 1600 and her labetalol was increased to 200mg BID. She continues to have no symptoms of pre-eclampsia. She now has mild range BPs and otherwise normal VS. Excellent UOP. Her physical exam is normal with exception of +2 pedal edema. She has anemia H/H 8.1/27.5 but this is stable from pre-op as she had anemia during . She denied symptoms of anemia. Her platelets and creatinine are normal. Her LFTs have trended upward since delivery, but remain within normal range. PLAN - IV antihypertensives as indicated for severe BPs, continue labetlol to 200mg BID and nifedipine 30mg qHS - VS/I/O per Mg protocol - continue regular diet - SCDs for DVT prophylaxis - discharge to home today, educated on pre-eclampsia and routine OB and post op return precautions and activity limitations - patient to return to clinic for BP check in 72h and has an apt next week for BP check and incision check - pap script given for nifedipine, patient has labetlol script already and can double the med to take 200mg [place] VS,Michelbone, I+O VS, Fishbone, I+O Vital Signs Date Time Temp Pulse Resp B/P (MAP) Pulse Ox O2 Delivery O2 Flow Rate FiO2 04/19/21 06:07 98.2 82 18 137/84 (101) 98 Room Air I&O- Last 24 Hours up to 6 AM 04/19/21 06:00 Intake Total 2170 ml Output Total 4500 ml Balance -2330 ml SHAYY TORRES DO April 19, 2021 07:16
--- NOTE | 2021-04-19 07:18 | OBDS ---
[facility] Obstetrical Discharge Sum. A/P, Post Course List any complications PROBLEMS LIST - CHTN on meds, labetlol 100mg BID on admission - superimposed pre-eclampsia with SF s/p 24h Mg in the immediate period - post-operative patient, s/p RCD on - anemia of Ms. Yoder is a 26 yo s/p repeat on 11 APR 2021 presents for elevated blood pressure (BP) found in routine BP check in clinic in the setting of recent diagnosis of superimposed pre-eclampsia with severe features on chronic hypertension (CHTN) diagnosed in the immediate period, receiving 24h magnesium at that time, on labetalol 100mg BID on admission. On arrival she had persistent severe range BPs requiring 20mg labetalol IV -> 10mg hydralazine IV -> 40mg labetalol IV -> 80mg labetalol IV. Magnesium sulfate was started and her labetalol was increased to 200mg BID and nifedipine 30mg nightly was added. She continues to have no symptoms of pre- eclampsia. She now has mild range BPs and otherwise normal vital signs and excellent urine output. Her physical exam is normal with exception of +2 pedal edema. She has anemia H/H 8.1/27.5 but this is stable from pre-op as she had anemia during . She denied symptoms of anemia. Her platelets and creatinine are normal. PLAN - continue regular diet - discharge to home today, educated on pre-eclampsia and routine OB and post op return precautions and activity limitations - patient to return to clinic for BP check in 72h and has an apt next week for BP check and incision check - paper script given for nifedipine, patient has labetlol script already and can double the med to take 200mg SHAYY TORRES DO April 19, 2021 07:18
[2021-04-19 08:28] LABS: HEMATOCRIT 30.9 % (36.0-47.0); HEMOGLOBIN 8.8 g/dl (12.0-15.5); MEAN CORPUSCULAR HEMOGLOBIN 22.7 pg (27.0-33.0); MEAN CORPUSCULAR HGB CONC 28.5 g/dl (32.0-36.5); MEAN CORPUSCULAR VOLUME 79.8 fl (80.0-96.0); PLATELET COUNT, AUTOMATED 291 10^3/uL (150-450); RED BLOOD COUNT 3.87 10^6/uL (4.00-5.40)
[2021-04-19 08:36] VITALS: BP 140/80
[2021-04-19] MEDS: FERROUS SULFATE 325MG TAB PO SCH (08:36)
[2021-04-19] MEDS: LABETALOL 200 MG TAB PO SCH (08:36)
[2021-04-19] MEDS: DOCUSATE SODIUM 100MG CAPSULE PO SCH (08:36)
[2021-04-19] MEDS: PRENATAL VITAMINS CHEWABLE TABLET PO SCH (08:36)
[2021-04-19 08:37] VITALS: BP 140/80
== END 2021-04-19 08:50 | disposition home or self-care (01) | DRG 776 ==
LOC: M LDO 13:07 → M LDI 16:32 → M OBS 04-18 11:00
PROVIDERS: ADMIT Registered Nurse Maternal Newborn; ATTEND Obstetrics & Gynecology
DX: O11.5 Pre-existing hypertension with pre-eclampsia, complicating the puerperium (principal); O99.03 Anemia complicating the puerperium; D64.9 Anemia, unspecified; O10.03 Pre-existing essential hypertension complicating the puerperium

== ENCOUNTER 2021-07-04 13:40 | Emergency (ER) | payer OTHER ==
[~2021-07-04] VITALS: Ht 157.5 cm; Wt 76.6 kg
[~2021-07-04 13:40] MED LIST changes: +LABE100T5 PO
[2021-07-04] MEDS ORDERED: NS 1,000 ML IV ONE (17:40)
[2021-07-04] MEDS ORDERED: KETOROLAC 30 MG/ML 1ML VIAL IV ONE (17:40)
[2021-07-04] MEDS ORDERED: METOCLOPRAMIDE INJ 10MG/2ML VIAL (J2765 PER 1) IV ONE (17:40)
[2021-07-04 18:24] LABS: BASO % 0.3 % (0.0-1.0); EOS # 0.1 10^3/uL (0.0-0.5); EOS % 1.5 % (0.0-3.0); HEMATOCRIT 37.6 % (36.0-47.0); HEMOGLOBIN 11.6 g/dl (12.0-15.5); LYMPH # 1.9 10^3/uL (1.5-5.0); LYMPH % 32.5 % (24.0-44.0); MEAN CORPUSCULAR HEMOGLOBIN 23.6 pg (27.0-33.0); MEAN CORPUSCULAR HGB CONC 30.9 g/dl (32.0-36.5); MEAN CORPUSCULAR VOLUME 76.4 fl (80.0-96.0); MONO # 0.5 10^3/uL (0.0-0.8); MONO % 7.7 % (2.0-8.0); NEUTROPHILS # 3.4 10^3/uL (1.5-8.5); NEUTROPHILS % 57.7 % (36.0-66.0); PLATELET COUNT, AUTOMATED 254 10^3/uL (150-450); RED BLOOD COUNT 4.92 10^6/uL (4.00-5.40); WHITE BLOOD COUNT 5.8 10^3/uL (4.0-10.0)
[2021-07-04 18:54] VITALS: BP 143/78
[2021-07-04 19:02] LABS: ERYTHROCYTE SEDIMENTATION RATE 33 mm/hr (0-20)
[2021-07-04 19:17] LABS: ALBUMIN 3.8 GM/DL (3.2-5.2); ALT/SGPT 42 U/L (12-78); BILIRUBIN,DIRECT < 0.1 MG/DL (0.0-0.2); BILIRUBIN,TOTAL 0.2 MG/DL (0.2-1.0); TOTAL PROTEIN 7.6 GM/DL (6.4-8.2)
--- NOTE | 2021-07-04 20:54 | REPVR ---
PROCEDURE INFORMATION: Exam: CT Head Without Contrast Exam date and time: 07/04/2021 7:05 PM Age: 26 years old Clinical indication: Pain; Headache; Additional info: HERNANDEZ, blurry vision TECHNIQUE: Imaging protocol: Computed tomography of the head without contrast. Radiation optimization: All CT scans at this facility use at least one of these dose optimization techniques: automated exposure control; mA and/or kV adjustment per patient size (includes targeted exams where dose is matched to clinical indication); or iterative reconstruction. COMPARISON: No relevant prior studies available. FINDINGS: Brain: Normal. No hemorrhage. Unremarkable white matter. No mass effect. Cerebral ventricles: No ventriculomegaly. Paranasal sinuses: Visualized sinuses are unremarkable. No fluid levels. Mastoid air cells: Visualized mastoid air cells are well aerated. Bones/joints: Unremarkable. No acute fracture. Soft tissues: Unremarkable. IMPRESSION: No acute intracranial abnormality. Electronically signed by: Rolando Calix On 07/04/2021 20:54:13 PM
== END 2021-07-04 20:33 | disposition left against medical advice (07) ==
LOC: M ED 13:40
DX: R51.9 Headache, unspecified (principal); H53.8 Other visual disturbances; I10 Essential (primary) hypertension
CPT/HCPCS: 70450; 80047; 80076; 84702; 85025; 85652; 96361; 96374; 96375; 99283; J1885; J2765